=== PATIENT | female | born 1955 | race Caucasian/White ===

== ENCOUNTER 2023-04-15 20:04 | Emergency (ER) | payer MEDICARE, SELFPAY ==
--- NOTE | ~2023-04-15 | CT_ITS ---
EXAMINATION: CT brain wo con DATE: 04/15/2023 21:49 INDICATION: syncope and fall . TECHNIQUE: Computed tomography (CT) of the head was performed without intravenous contrast. The mA wa s adjusted according to patient size. Iterative reconstruction technique was employed. The dose-lengt h product was 605.33 mGy-cm. COMPARISON: None. FINDINGS: No acute intracranial hemorrhage or extra-axial fluid collection. No hydrocephalus, mass, or herniation. No acute ischemic infarct. Unremarkable dural venous sinus attenuation. No acute osseous abnormality. The aerated spaces are clear. IMPRESSION: No acute intracranial process. Reviewed, dictated and finalized at location K. SPRING I INSPECTOR
--- NOTE | ~2023-04-15 | CT_ITS ---
EXAMINATION: CTA chest PE protocol DATE: 04/15/2023 21:52 INDICATION: syncope, POD 5 cervical fusion TECHNIQUE: Computed tomography angiography (CTA) of the chest was performed with 100 mL Omnipaque-350 intravenous contrast timed to evaluate the pulmonary arteries. Coronal maximum intensity projection 3D-reconstructions were created by the technologist. The dose-length product (DLP) was 226.66 mGy-cm. Automated exposure control and iterative reconstruction technique were employed. COMPARISON: CT C-spine same date. FINDINGS: Lung parenchyma and airways: 5 mm nodular opacity in the peripheral left lower lobe. 6 mm nodular [place] in the peripheral right lower lobe. Granulomatous calcifications. Pleura: Unremarkable. Thoracic inlet, axillae and chest wall: 3.9 x 3.8 x 8.4 cm fluid collection in the right anteroinferi or neck, with small internal gas bubbles, small foci of irregular slight hyperdensity that could repr esent clot, and mild surrounding fat stranding. This collection displaces the thyroid to the right an d the common carotid left. Loss of the fat plane with the anterior strap muscles and with the esophag us. No extravasation detected in the pulmonary arterial phase. Thoracic aorta: Normal. Mediastinum: Normal. Heart and pericardium: Normal. Coronary artery calcifications: Absent. Upper abdomen: Small volume peritoneal fluid. Bones: No acute osseous finding. Pulmonary arteries: Study quality: Adequate. No pulmonary emboli detected. IMPRESSION: No CT evidence of acute pulmonary embolus. 3.9 x 3.8 x 8.4 cm fluid collection in the right inferior neck. May represent a postoperative seroma/ hematoma. Early abscess, expanding hematoma from slow/low volume venous hemorrhage, or upper esophage al injury with leak are not excluded. Small volume ascites. Multiple sub-6 mm pulmonary nodules which require no additional evaluation, unless the patient is at high risk, in which case consider optional low-dose noncontrast CT of the chest in 12 months. Reviewed, dictated and finalized at location K. NSIC SCIENCE TECHNICIAN IMPRESSION: No CT evidence of acute pulmonary embolus. 3.9 x 3.8 x 8.4 cm fluid collection in the right inferior neck. May represent a postoperative seroma/hematoma. Early abscess, expanding hematoma from slow/low volume venous hemorrhage, or upper esophageal injury with leak are not exclude d. Small volume ascites. Multiple sub-6 mm pulmonary nodules which require no additional evaluation, unl ess the patient is at high risk, in which case consider optional low-dose nonco ntrast CT of the chest in 12 months.
--- NOTE | ~2023-04-15 | CT_ITS ---
EXAMINATION: CT cervical spine wo con DATE: 04/15/2023 21:49 INDICATION: syncope and fall TECHNIQUE: Computed tomography (CT) of the cervical spine was performed without intravenous contrast. Automated exposure control and iterative reconstruction technique were employed. The dose-length pro duct was 356.21 mGy-cm. COMPARISON: None. FINDINGS: Vertebral Body Alignment: Intact. Trace anterolistheses at C3-4 and C4-5, presumably on a degenerativ e basis Craniocervical and atlantoaxial alignment: Moderate degenerative change. Alignment intact. Osseous structures/fracture: No evidence of a lytic or blastic process in the visualized spine. No e vidence of acute fracture. Uncomplicated appearing ACDF hardware spanning C5-C7, interbody devices in good position Cervical soft tissues: The paraspinal soft tissues planes are maintained. Fluid and gas collection in the right lower neck. Degenerative changes: Multilevel mild degenerative disc disease. Multilevel moderate facet arthropath y. No severe central canal or neural foraminal narrowing. IMPRESSION: No acute fracture or traumatic malalignment in the cervical spine. Fluid and gas collection in the right lower neck, please refer to the report on the CTPA for addition al details. Reviewed, dictated and finalized at location K. [employer] IMPRESSION: No acute fracture or traumatic malalignment in the cervical spine. Fluid and gas collection in the right lower neck, please refer to the report on the CTPA for additional details.
[2023-04-15 20:06] VITALS: BP 101/88; PULSE 99; RESP 15; O2SAT 96
[2023-04-15 20:15] VITALS: TEMP 37; O2SAT 96
--- NOTE | 2023-04-15 20:49 | ECG_ITS ---
Measurements Intervals [place] Rate: 114 P: 57 AR: 104 QRS: 39 QRSD: 88 T: 55 QT: 316 QTc: 436 Interpretive Statements SINUS TACHYCARDIA WITH SHORT AR INTERVAL BORDERLINE ST-T WAVE ABNORMALITY- DIFFUSE LEADS ABNORMAL ECG NO PREVIOUS ECG AVAILABLE FOR COMPARISON Electronically Signed On 04-16-2023 7:28:35 RETREAD SUPERVISOR by Clint Atkins D.O.
[2023-04-15] MEDS: SODIUM CHLORIDE 0.9% IV 2,000 ML 999 ML IV CONT (21:05)
[2023-04-15 21:07] LABS: Basophils Absolute Auto 0.1 K/mm3 (0.0-0.1); Basophils Percent Auto 0.5 % (0.2-1.2); Eosinophils Absolute Auto 0.2 K/mm3 (0-0.3); Eosinophils Percent Auto 0.6 % (0-4.4); Hematocrit 57.5 % (37.0-47.0); Hemoglobin 18.5 g/dL (12.0-15.0); Immature Granulocyte Absolute 0.15 K/mm3 (0.00-0.031); Immature Granulocyte Percent A 0.6 % (0-0.5); Lymphocytes Absolute Auto 2.56 K/mm3 (0.9-3.2); Lymphocytes Percent Auto 10.7 % (18.3-44.2); Mean Corpuscular HGB Conc 32.2 g/dl (32-36); Mean Corpuscular Hemoglobin 29.1 pg (26-34); Mean Corpuscular Volume 90.6 fl (80-100); Mean Platelet Volume 9.6 fl (7.4-10.4); Neutrophils Absolute Auto 20.1 K/mm3 (1.3-6.7); Neutrophils Percent Auto 83.6 % (45.5-73.1); Platelet Count Result 433 k/mm3 (150-375); Red Blood Count 6.35 M/mm3 (4.2-5.4); Red Cell Distribution Width 14.8 % (11.5-14.5)
[2023-04-15 21:16] LABS: Alanine Aminotransferase 14 U/L (6-35); Albumin Level 4.1 g/dL (3.5-5.1); Alkaline Phosphatase 89 U/L (38-126); Anion Gap 10 mmol/L (8-16); Aspartate Amino Transferase 23 U/L (14-36); Bilirubin,Total 0.5 mg/dL (0.2-1.3); Blood Urea Nitrogen 19 mg/dL (7-17); Calcium 9.6 mg/dL (8.4-10.2); Carbon Dioxide 26 mmol/L (22-30); Chloride 100 mmol/L (98-107); Estimated CRCL calculation 46 ml/min; Estimated Glomerular Filt Rate > 60; Glucose 136 mg/dL (65-110); Lactic Acid Reflex 1.7 mmol/L (0.7-2.0); Lipase 55 U/L (23-300); Magnesium 2.1 mg/dL (1.6-2.3); Phosphorus 5.1 mg/dL (2.5-4.5); Potassium 4.5 mmol/L (3.4-5.0); Sodium 136 mmol/L (137-145)
[2023-04-15 21:17] LABS: INR 0.9; Prothrombin Time 12.9 Seconds (11.1-14.7)
[2023-04-15 21:18] LABS: Partial Thromboplastin Time 28.3 SECONDS (22.3-36.8)
[2023-04-15 21:27] LABS: NT Pro B Type Natriuretic Pept 56 pg/mL (19.9-100); Troponin I < 0.012 ng/mL (0.000-0.034)
--- NOTE | 2023-04-15 21:40 | PC.NURSE ---
Pt to CT at this time. Will attempt to obtain urine sample when pt returns.
[2023-04-15 21:41] LABS: Influenza A QL RT-PCR Negative (Negative); Influenza B QL RT-PCR Negative (Negative); RSV RNA, RT-PCR Negative (Negative); SARS-CoV-2 RNA PCR Negative (Negative)
[2023-04-15 21:52] LABS: Toxigenic C. Diff NEGATIVE (NEGATIVE)
[2023-04-15 23:37] VITALS: BP 129/95; PULSE 83; RESP 16; O2SAT 100
[2023-04-15 23:40] LABS: Appearance Urine Clear (Clear); Bilirubin Urine Negative (Negative); Blood Urine Negative (Negative); Color Urine Yellow (Yellow); Glucose Urine UA Negative (Negative); Ketones Urine Negative (Negative); Leukocyte Esterase Ur Negative LEU/UL (Negative); Nitrate Urine Negative (Negative); Protein Urine Negative (Negative); Specific Grav Ur 1.052 (1.001-1.035); Urobilinogen Urine 0.2 mg/dL (<2.0); pH Urine 5.5 (5.0-9.0)
[2023-04-15 23:41] LABS: Add Urine Microscopic? NO
--- NOTE | 2023-04-15 23:46 | ED.GENADULT ---
HPI - General Adult General Chief complaint: Syncope Stated complaint: previously unresponsive Time Seen by Provider: 04/15/23 20:06 History of Present Illness HPI narrative: This is a 68-year-old female presenting ED with chief complaint of syncope. Patient is pod 5 from an anterior cervical fusion performed by Dr. Jen Merino. Patient was at home when she started to feel like something wasn't right. She then had a syncopal event. Patient was found by her significant other laying on the floor. She was unresponsive, blue and and had an episode of diarrhea. He called EMS my time they arrived the patient returned to consciousness. At this time she is A&O x4 although she feels weak, complaining of cold hands and feet and is having profuse diarrhea. Related Data Allergies Allergy/AdvReac Type Severity Reaction Status Date / Time sulfamethoxazole Allergy Intermediate fever/chill Verified 04/15/23 20:17 s trimethoprim Allergy Intermediate fever/chill Verified 04/15/23 20:17 s meperidine Allergy Mild makes her Verified 04/15/23 20:17 feel bad Exam Narrative: APPEARANCE: No apparent distress. Head: atraumatic. EYES: EOMI, NOSE: Atraumatic NECK: Patient is in an [place] collar, she has well-healed surgical incision without surrounding erythema over the anterior neck. Some tenderness to palpation but no significant mass or fluctuance. RESPIRATORY: No increased rate of breathing, clear to auscultation CARDIOVASCULAR: RRR, no peripheral edema, hands and feet are cold ABDOMINAL: Non-distended, soft nontender, no guarding or rebound. MUSCULOSKELETAl: No obvious deformities NEURO: Alert. CN 2-12 intact. Sensation to light tough, motor function and sensation intact in 4/4 extremities. SKIN:: Normal color PSYCHIATRIC: Normal affect Course Vital Signs Vital signs: Vital Signs Pulse Rate 99 04/15/23 20:06 Respiratory Rate 15 04/15/23 20:06 Blood Pressure 101/88 04/15/23 20:06 Pulse Oximetry 96 04/15/23 20:06 Oxygen Delivery Room Air 04/15/23 20:06 Temperature 98.6 F 04/15/23 20:15 Pulse Rate 96 04/16/23 03:16 Respiratory Rate 18 04/16/23 03:16 Blood Pressure 120/78 04/16/23 03:16 Pulse Oximetry 96 04/16/23 02:01 Oxygen Delivery Room Air 04/15/23 20:15 Medical Decision Making MDM Narrative Medical decision making narrative: -Course: 68-year-old female on pod 5 from an anterior cervical 5-[address] Chris Merino presenting for an episode of unresponsiveness. Extensive workup ordered including CT PE, CT Cervical spine, CT head and laboratory studies. I was contacted by our radiologist Dr. Dixon and informed the CT showed a large fluid collection at the surgical site. Some distortion of anatomy but unclear if this is within normal limits. Differential included seroma/hematoma/abscess/esophageal injury. The rest of the workup with significant for a white count of 23. Other imaging and laboratory studies were unremarkable. We attempted to call Dr. Merino's office line and left a voicemail. We did not receive a call back for several hours. The patient was unsure of what hospital Dr. Merino was associated with. We searched the internet and saw he was associated with [facility] and [facility]. When we contacted them we were informed he no longer had privileges at their hospital and was pending litigation. I consulted our neurosurgeon simulation specialist Dr. Carrillo. She stated the patient needed to be sent back to her surgeon for any post op complications and [facility] does not have the appropriate resources for this patient. We were in the process of contacting [facility] when Dr. Merino called back. He was initially polite and apologized for the late response as our call had been flagged as spam on his cell phone. We discussed the patient's presentation and imaging and he did not believe that her syncope was due to a surgical complication
[2023-04-16] MEDS: SODIUM CHLORIDE 0.9% IV 1,000 ML 999 ML IV CONT (00:07)
[2023-04-16 00:31] VITALS: BP 118/83; PULSE 96; RESP 19; O2SAT 98
[2023-04-16 00:36] LABS: Troponin I < 0.012 ng/mL (0.000-0.034)
[2023-04-16 01:31] VITALS: BP 105/79; PULSE 103; RESP 23; O2SAT 95
[2023-04-16 01:33] LABS: CRP 2.7 mg/dL (<1.0)
[2023-04-16 01:53] VITALS: BP 108/78; PULSE 100; RESP 23; O2SAT 99
[2023-04-16 02:01] VITALS: BP 116/78; PULSE 94; RESP 21; O2SAT 96
[2023-04-16 03:12] LABS: Erythrocyte Sedimentation Rate 12 mm/hr (0-20)
[2023-04-16 03:16] VITALS: BP 120/78; PULSE 96; RESP 18
== END 2023-04-16 03:41 | disposition left against medical advice (07) ==
LOC: ANHED 22:01
PROVIDERS: Emergency Provider Emergency Medicine
DX: R55 Syncope and collapse (principal); Z98.1 Arthrodesis status; Z20.822 Contact with and (suspected) exposure to COVID-19; R00.0 Tachycardia, unspecified; R94.31 Abnormal electrocardiogram [ECG] [EKG]; R91.8 Other nonspecific abnormal finding of lung field; R93.7 Abnormal findings on diagnostic imaging of other parts of musculoskeletal system
CPT/HCPCS: 36415; 70450; 71275; 72125; 80053; 81003; 83605; 83690; 83735; 83880; 84100; 84484; 85025; 85610; 85652; 85730; 86140; 87493; 87637; 93005; 99284; J7030; Q9967

== ENCOUNTER 2023-04-17 14:18 | Emergency (ER) | payer MEDICARE, SELFPAY ==
--- NOTE | ~2023-04-17 | CT_ITS ---
EXAMINATION: CT abdomen pelvis w con DATE: 04/17/2023 18:19 INDICATION: Left lower quadrant abdominal pain. Diarrhea. TECHNIQUE: Computed tomography (CT) of the abdomen and pelvis was performed with 100 mL Omnipaque 350 intravenous contrast. Automated exposure control and iterative reconstruction technique were employe d. The dose-length product was 350.06 mGy-cm. COMPARISON: Chest CT 04/15/2023 FINDINGS: The visualized portions of the lung bases demonstrate mild atelectasis. No pleural effusion . The heart size is normal. No pericardial effusion. There is a 4.0 x 2.6 cm hypodense mass in right hepatic lobe. The gallbladder is normal in size and contains sludge. The spleen, pancreas, adrenal gl ands, and left kidney are normal. There is moderate atrophy of right kidney. There is an 11 mm cyst i n right kidney. There is diverticulosis of the colon without evidence of diverticulitis. There is wid espread wall thickening of small and large bowel, consistent with enterocolitis. The appendix is not visualized. There is a small volume of ascites. There is an umbilical hernia containing fat. There is moderate lower lumbar spondylosis. IMPRESSION: 1. 4.0 cm liver mass. The differential diagnosis includes abscess, hemangioma, and less likely malign cristina. Abdomen MRI without and with contrast is recommended. 2. Wall thickening of small and large bowel, consistent with enterocolitis. 3. Small volume of ascites. Reviewed, dictated and finalized at location E. D APPRAISER IMPRESSION: 1. 4.0 cm liver mass. The differential diagnosis includes abscess, hemangioma, and less likely malignancy. Abdomen MRI without and with contrast is recommende d. 2. Wall thickening of small and large bowel, consistent with enterocolitis. 3. Small volume of ascites.
[2023-04-17 14:54] VITALS: BP 137/87; PULSE 97; RESP 18; TEMP 36.7; O2SAT 98
[2023-04-17 16:13] LABS: Toxigenic C. Diff NEGATIVE (NEGATIVE)
--- NOTE | 2023-04-17 16:43 | ED.GENADULT ---
HPI - General Adult General Chief complaint: Nausea/Vomiting/Diarrhea Stated complaint: Diarrhea Time Seen by Provider: 04/17/23 15:44 Source: patient Mode of arrival: ambulatory Limitations: no limitations History of Present Illness HPI narrative: this is a 68-year-old female who presents to the ED with chief complaint of diarrhea x1 week. Reports that she had anterior cervical fusion surgery 1 week ago was started on Keflex after that. She was seen in this department after having a syncopal episode and had a negative workup at that time she reports that she continues to some loose stools, up to 4-5 per day. Denies bloody stools or melena. Denies nausea or. She reports having abdominal cramps all throughout the abdomen. these cramps seem to be worse with diarrhea. Denies fevers, chills, urinary problems chest pain, shortness of breath. reports hysterectomy but no other abdominal surgical history Related Data Allergies Allergy/AdvReac Type Severity Reaction Status Date / Time sulfamethoxazole Allergy Intermediate fever/chill Verified 04/17/23 14:59 s trimethoprim Allergy Intermediate fever/chill Verified 04/17/23 14:59 s meperidine Allergy Mild makes her Verified 04/17/23 14:59 feel bad Review of Systems Review of Systems: All systems as dictated in HPI Exam Narrative: GENERAL: Well-appearing, well-nourished, and in no acute distress. HEAD: Normocephalic, atraumatic. EYES: PERRLA and EOMI. ENT: Nares clear, no rhinorrhea or epistaxis. Mucous membranes moist. Oropharynx without tonsillar hypertrophy exudate or other lesions. NECK: Supple. No adenopathy or masses. CHEST: No respiratory distress. Clear to auscultation. No wheezes rales or rhonchi HEART: Regular rate and rhythm. No murmur heard. Normal peripheral pulses. ABDOMEN: Tenderness in the left lower and right lower quadrant with voluntary guarding. No rigidity. Soft, nondistended, normal active bowel sounds. Negative Salazar, negative psoas, negative McBurney's point. MSK: Normal range of motion. No edema. SKIN: Warm, dry, no rash. NEURO: Alert and oriented x3. No focal deficits. PSYCH: Normal mood and affect. Course Course Emergency Course: Ct abd and pelvis: 1. 4.0 cm liver mass. The differential diagnosis includes abscess, hemangioma, and less likely malignancy. Abdomen MRI without and with contrast is recommended. 2. Wall thickening of small and large bowel, consistent with enterocolitis. 3. Small volume of ascites.. Reeval: Pt remains stable with a soft abdomen on re exam. No fevers or sepsis Consult Radiology, Dr. Syed who ensures that she could have the lesion seen on CT drained if needed here in this hospital. Consult hospitalist Dr. Eller, who would like to run this by GI before admitting. Consult Dr Burkett, (GI), who states there is nothing to do from a GI perspective unless she is having complications such gallstones, pancreatitis or hepatitis. Consult Dr. Eller, he says he will review the chart and call back. He is advising transfer at this point in declining admission to hospital. Vital Signs Vital signs: Vital Signs Temperature 98.1 F 04/17/23 14:54 Pulse Rate 97 04/17/23 14:54 Respiratory Rate 18 04/17/23 14:54 Blood Pressure 137/87 04/17/23 14:54 Pulse Oximetry 98 04/17/23 14:54 Oxygen Delivery Room Air 04/17/23 14:54 Temperature 98.1 F 04/17/23 14:54 Pulse Rate 97 04/17/23 14:54 Respiratory Rate 18 04/17/23 14:54 Blood Pressure 137/87 04/17/23 14:54 Pulse Oximetry 98 04/17/23 14:54 Oxygen Delivery Room Air 04/17/23 14:54 Medical Decision Making MDM Narrative Medical decision making narrative: This patient has elected to leave against medical advice. In my opinion, the patient has capacity to leave AMA. The patient is clinically sober, free from distracting injury, appears to have intact insight and judgment and reason, and in my opinion h
[2023-04-17 17:44] LABS: Basophils Percent Auto 0.4 % (0.2-1.2); Eosinophils Absolute Auto 0.1 K/mm3 (0-0.3); Eosinophils Percent Auto 1.2 % (0-4.4); Hematocrit 40.4 % (37.0-47.0); Hemoglobin 13.1 g/dL (12.0-15.0); Immature Granulocyte Absolute 0.05 K/mm3 (0.00-0.031); Immature Granulocyte Percent A 0.4 % (0-0.5); Lymphocytes Absolute Auto 2.36 K/mm3 (0.9-3.2); Mean Corpuscular HGB Conc 32.4 g/dl (32-36); Mean Corpuscular Hemoglobin 29.7 pg (26-34); Mean Corpuscular Volume 91.6 fl (80-100); Mean Platelet Volume 9.4 fl (7.4-10.4); Monocytes Absolute Auto 0.9 K/mm3 (0.1-0.6); Monocytes Percent Auto 7.6 % (2.6-8.5); Neutrophils Absolute Auto 7.8 K/mm3 (1.3-6.7); Neutrophils Percent Auto 69.4 % (45.5-73.1); Platelet Count Result 336 k/mm3 (150-375); Red Blood Count 4.41 M/mm3 (4.2-5.4); Red Cell Distribution Width 14.2 % (11.5-14.5); White Blood Count 11.2 K/mm3 (4.5-10.0)
[2023-04-17 17:51] LABS: Appearance Urine Cloudy (Clear); Bacteria Urine Rare /hpf; Bilirubin Urine Negative (Negative); Blood Urine Negative (Negative); Color Urine Yellow (Yellow); Glucose Urine UA Negative (Negative); Ketones Urine Negative (Negative); Leukocyte Esterase Ur Negative LEU/UL (Negative); Nitrate Urine Negative (Negative); Non Pathogenic Casts 0-2; Protein Urine Negative (Negative); RBC Urine 0-2 /hpf (0-2); Specific Grav Ur 1.009 (1.001-1.035); Squamous Epithelial Cell Urine Moderate /hpf (Few); Urobilinogen Urine 0.2 mg/dL (<2.0); WBC Urine 0-5 /hpf; pH Urine 6.5 (5.0-9.0)
[2023-04-17 17:59] LABS: Alanine Aminotransferase 12 U/L (6-35); Albumin Level 3.8 g/dL (3.5-5.1); Alkaline Phosphatase 66 U/L (38-126); Anion Gap 8 mmol/L (8-16); Aspartate Amino Transferase 21 U/L (14-36); Bilirubin,Total 0.3 mg/dL (0.2-1.3); Blood Urea Nitrogen 8 mg/dL (7-17); CRP 2.3 mg/dL (<1.0); Calcium 8.5 mg/dL (8.4-10.2); Carbon Dioxide 26 mmol/L (22-30); Chloride 103 mmol/L (98-107); Estimated CRCL calculation 67 ml/min; Estimated Glomerular Filt Rate > 60; Glucose 96 mg/dL (65-110); Lipase 60 U/L (23-300); Potassium 3.7 mmol/L (3.4-5.0); Sodium 137 mmol/L (137-145)
[2023-04-17 18:36] LABS: Add Urine Microscopic? YES
[2023-04-17 19:41] VITALS: BP 134/92; PULSE 72; RESP 16; TEMP 36.4; O2SAT 99
--- NOTE | 2023-04-17 19:42 | PC.NURSE ---
Patient states that she looked at her MyChart and saw that she had a CT back in 2001 that showed a mass on her liver. EDP ZAMZAM Lanier notified.
== END 2023-04-17 20:29 | disposition left against medical advice (07) ==
PROVIDERS: Emergency Medicine; Emergency Provider Physician Assistant
DX: K52.9 Noninfective gastroenteritis and colitis, unspecified (principal); R16.0 Hepatomegaly, not elsewhere classified; Z98.1 Arthrodesis status
CPT/HCPCS: 36415; 74177; 80053; 81001; 83690; 85025; 86140; 87493; 99284; Q9967